=== PATIENT | female | born 1990 | race African-American/Black ===

== ENCOUNTER 2017-01-31 19:22 | Emergency (ER) | payer OTHER ==
[2017-01-31 19:27] VITALS: BP 120/68; PULSE 90; TEMP 98.1; BMI 28.6
[2017-01-31] MEDS ORDERED: ACETAMINOPHEN 325 MG TABLET (FP) PO ONE (20:05)
[2017-01-31] MEDS ORDERED: ALBUTEROL SO4 0.083% IH SOL 2.5 MG/3 ML VIAL.NEB. NEB ONE ×2 (20:06→20:10)
--- NOTE | 2017-01-31 20:09 | PDOC ---
History of Present Illness - General Chief Complaint: Respiratory Stated Complaint: 14 WKS PRG/CHEST PAIN Time Seen by Provider: 01/31/17 19:47 History Source: Patient Exam Limitations: No Limitations - History of Present Illness Initial Comments: 01/31/17 20:06 26 yr female states she is 14 weeks with cough and pain to her chest with coughing. Pt feels body aches. no shortness of breath. Pt has no medical history or allergies. Pt is followed by last visit . Pt states is unremarkable. Timing/Duration: reports: week Severity: reports: mild Episode Description: coughing Past History - Past Medical History Allergies/Adverse Reactions: Allergies Allergy/AdvReac Type Severity Reaction Status Date / Time peanut Allergy Verified 01/31/17 19:28 Penicillins Allergy Verified 01/31/17 19:27 shellfish derived Allergy Verified 01/31/17 19:28 Home Medications: Ambulatory Orders NK [No Known Home Medication] 01/31/17 Asthma: No Cancer: No Cardiac Disorders: No Diabetes: No HTN: No Seizures: No Thyroid Disease: No - Family Disease History Comment:: 01/31/17 20:08 none - Psycho/Social/Smoking Cessation Hx Anxiety: No Suicidal Ideation: No Smoking History: Never smoked Have you smoked in the past 12 months: No Hx Alcohol Use: No Drug/Substance Use Hx: No Substance Use Type: None Hx Substance Use Treatment: No Review of Systems - Review of Systems Able to Perform ROS?: Yes Is the patient limited Wolof proficient: No Constitutional: No: Symptoms Reported HEENTM: Yes: See HPI Respiratory: Yes: See HPI Cardiac (ROS): Yes: See HPI, Chest Pain (with cough and with touch to anterior chest, no left sided pain no SOB, cough noted ) *Physical Exam - Vital Signs Last Vital Signs Temp Pulse Resp BP Pulse Ox 98.1 F 90 18 120/68 99 01/31/17 19:24 01/31/17 19:24 01/31/17 19:24 01/31/17 19:24 01/31/17 19:24 - Physical Exam General Appearance: Yes: Nourished, Appropriately Dressed HEENT: positive: EOMI, MARILUZ, TMs Normal, Pharynx Normal Neck: positive: Supple. negative: Tender Respiratory/Chest: positive: Chest Tender (ttp reproducable with cough anterior upper chest to neck area , no left sided pain), Lungs Clear, Normal Breath Sounds Cardiovascular: positive: Regular Rhythm, Regular Rate Gastrointestinal/Abdominal: positive: Normal Bowel Sounds, Soft Musculoskeletal: positive: Normal Inspection Extremity: positive: Normal Capillary Refill, Normal Inspection, Normal Range of Motion Integumentary: positive: Normal Color, Dry, Warm Neurologic: positive: Fully Oriented, Alert, Normal Mood/Affect, Normal Response , Motor Strength /5 Medical Decision Making - Medical Decision Making 01/31/17 20:09 cc: cough body aches one week no shortness of breath no fever or chills denies abd pain or discharge 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 01/31/17 21:07 *DC/Admit/Observation/Transfer Diagnosis at time of Disposition: Viral bronchitis - Discharge Dispostion Disposition: HOME Condition at time of disposition: Good - Referrals Referrals: Dane San MD [Primary Care Provider] - - Patient Instructions Additional Instructions: drink at least 2 -3 liters of water a day eat small frequent meals around every 2-3hrs to keep blood sugar levels regular take tylenol 650mg every 4-6hrs for any fever or pain honey and tea with lemon for cough follow with your primary care doctor Thursday for follow up Return to the ER for any worsening symptoms
[2017-01-31] MEDS ORDERED: ACETAMINOPHEN 325 MG TABLET (FP) ONE (20:10)
[2017-01-31 20:14] LABS: URINE APPEARANCE CLEAR; URINE BILIRUBIN NEGATIVE (NEGATIVE); URINE BLOOD NEGATIVE (NEGATIVE); URINE COLOR LTYELLOW; URINE GLUCOSE (UA) 1+ (NEGATIVE); URINE KETONE NEGATIVE (NEGATIVE); URINE LEUK ESTERASE NEGATIVE (NEGATIVE); URINE NITRITE NEGATIVE (NEGATIVE); URINE PROTEIN NEGATIVE (NEGATIVE); URINE UROBILINOGEN NEGATIVE E.U./dl (0.2-1.0)
== END 2017-01-31 21:50 | disposition home or self-care (01) ==
LOC: JERFT 19:22
PROC: 3E0F7GC Introduction of Other Therapeutic Substance into Respiratory Tract, Via Natural or Artificial Opening (ICD-10-PCS; principal; 2017-01-31)
DX: O26.891 Other specified pregnancy related conditions, first trimester (principal); J20.8 Acute bronchitis due to other specified organisms; B97.89 Other viral agents as the cause of diseases classified elsewhere; Z3A.14 14 weeks gestation of pregnancy
CPT/HCPCS: 81003; 87086; 87804; 94640; 99281-25

== ENCOUNTER 2017-05-27 14:38 | Emergency (ER) | payer OTHER ==
[2017-05-27 14:45] VITALS: BP 108/61; PULSE 99; TEMP 98.3; BMI 28.8
== END 2017-05-27 16:41 | disposition home or self-care (01) ==
LOC: JER 14:38
DX: O26.893 Other specified pregnancy related conditions, third trimester (principal); O36.8130 Decreased fetal movements, third trimester, not applicable or unspecified; Z3A.31 31 weeks gestation of pregnancy; Y04.8XXA Assault by other bodily force, initial encounter; Y93.89 Activity, other specified; Y92.89 Other specified places as the place of occurrence of the external cause; Y07.499 Other family member, perpetrator of maltreatment and neglect
CPT/HCPCS: 99281-25

== ENCOUNTER 2017-07-16 19:45 | Inpatient (IN) | payer OTHER ==
[2017-07-16] MEDS ORDERED: CLINDAMYCIN 900 MG PREMIX IVPB 50 ML IVPB ONE (20:07)
[2017-07-16] MEDS ORDERED: BUTORPHANOL TARTRATE 1 MG/ML VIAL IVPUSH PRN (20:09)
[2017-07-16] MEDS ORDERED: PROMETHAZINE HCL 25 MG/1 ML VIAL IVPUSH ONE (20:09)
[2017-07-16] MEDS ORDERED: DEXTROSE 5%-LACTATED RINGERS 1,000 ML IV SCH (20:15)
--- NOTE | 2017-07-16 20:20 | HP ---
Past Medical History - Primary Care Physician PCP:: Kole Gordon - Admission Chief Complaint: 39 weeks, labor History of Present Illness: 27 yo f g 5 [id number] edc by sono 07/28/17 edc by date 07/22/17 c/o contraction, no rom, no bleeding, cx 5 cm 80 vx -1 mi, fhr cat 1 irregular contraction History Source: Patient Limitations to Obtaining History: No Limitations - Past Medical History ...: 5 ...Para: 3 ...Term: 3 ...: 0 ...Spon : 1 ...Multiple Gestation: 0 ... Weeks Gestation by Dates: 39 ...EDC by Dates: 07/22/17 ...EDC by Sono: 07/28/17 Infectious Disease: Yes: STD's (txed for BV, yeast and trich), Other - Past Surgical History Hx Myomectomy: No Hx Transabdominal Cerclage: No - Smoking History Smoking history: Never smoked Have you smoked in the past 12 months: No - Alcohol/Substance Use Hx Alcohol Use: No - Social History Usual Living Arrangement: Yes: Alone History of Recent Travel: No Home Medications - Allergies Allergies/Adverse Reactions: Allergies Allergy/AdvReac Type Severity Reaction Status Date / Time peanut Allergy Verified 05/27/17 14:45 Penicillins Allergy Verified 05/27/17 14:45 shellfish derived Allergy Verified 05/27/17 14:45 - Home Medications Home Medications: Ambulatory Orders Ferrous Sulfate [Feosol] 325 mg PO BID 05/21/17 Vit/Iron Fumarate/FA [ Tablet] 1 tablet PO DAILY 05/21/17 Review of Systems - Review of Systems Constitutional: reports: No Symptoms Eyes: reports: No Symptoms HENT: reports: No Symptoms Neck: reports: No Symptoms Cardiovascular: reports: No Symptoms Respiratory: reports: No Symptoms Gastrointestinal: reports: No Symptoms Genitourinary: reports: No Symptoms Breasts: reports: No Symptoms Reported Musculoskeletal: reports: No Symptoms Integumentary: reports: No Symptoms Endocrine: reports: No Symptoms Hematology/Lymphatic: reports: No Symptoms Psychiatric: reports: No Symptoms Physical Exam - Maternity Constitutional: Yes: Well Nourished, No Distress, Calm Eyes: Yes: WNL, Conjunctiva Clear, EOM Intact HENT: Yes: WNL, Atraumatic, Normocephalic Neck: Yes: WNL, Supple, Trachea Midline Cardiovascular: Yes: WNL, Regular Rate and Rhythm Breast(s): Yes: WNL - Abdominal Exam/OB Fundal Height: 40 Number of Fetuses: Single Presentation: Vertex Contractions: Yes Regularity: Irregular Intensity: Moderate Monitor Mode: External Heart Rate Location: [facility] Category: I Accelerations: Uniform Decelerations: None - Vaginal Exam/OB Vaginal Bleediing: No Speculum Exam: Yes Dilatation (cm): 5 Effacement (%): 80 Amniotic Membrane Status: Intact Presentation: Vertex/Position Station: -1 - Physical Exam Musculoskeletal: Yes: WNL Extremities: Yes: WNL Edema: RLE: 1+ Deep Tendon Reflex Grade: Normal +2 Hemorrhage Risk Assessment - Risk Factors Medium Risk Factors: Yes: None High Risk Factors: Yes: None Risk Score: 1 Risk Level: Medium Risk Problem List - Problems (1) with 39 completed weeks gestation Code(s): Z3A.39 - 39 WEEKS GESTATION OF (2) Labor established Code(s): OLL8152 - Assessment/Plan plan admit for vaginal delivery, FHM, pain management
[2017-07-16 21:24] LABS: BASOPHIL 0.3 % (0-2.0); EOSINOPHIL 1.3 % (0-4.5); MCH 29.5 pg (25.7-33.7); MCHC 33.7 g/dl (32.0-36.0); MEAN CELL VOLUME 87.5 fl (80-96); MEAN PLT VOLUME 8.7 fl (7.5-11.1); NEUTROPHILS 63.3 % (42.8-82.8); PLATELET COUNT 229 K/MM3 (134-434); RDW 14.3 % (11.6-15.6); WHITE BLOOD COUNT 9.1 K/mm3 (4.0-10.0)
[2017-07-16 21:36] VITALS: BMI 29.0
[2017-07-16 21:41] LABS: INR 0.99 (0.82-1.09); PROTHROMBIN TIME (PATIENT) 10.9 SEC (9.98-11.88)
[2017-07-16 21:44] LABS: ACTIVATED PTT 27.5 SECONDS (26.9-34.4)
[2017-07-16 21:54] LABS: ANION GAP 8 (8-16); CALCIUM 8.1 mg/dL (8.5-10.1); CO2 23 mmol/L (21-32); CREATININE 0.4 mg/dL (0.55-1.02); GLUCOSE,RANDOM 57 mg/dL (74-106)
--- NOTE | 2017-07-16 22:20 | PN ---
Progress Note (short form) - Note Progress Note: cx 7 cm 100 vx o mi arom, clear fhr cat 1 Problem List - Problems (1) with 39 completed weeks gestation Code(s): Z3A.39 - 39 WEEKS GESTATION OF (2) Labor established Code(s): [id number] -
[2017-07-17] MEDS ORDERED: BENZOCAINE 28 GM HEMORRHOIDAL OINTMENT TP PRN (00:26)
[2017-07-17] MEDS ORDERED: IBUPROFEN 600 MG TABLET (FP) PO PRN (00:26)
[2017-07-17] MEDS ORDERED: WITCH HAZEL 50% (TUCKS) 40 PAD/JAR PAD TP PRN (00:26)
[2017-07-17] MEDS ORDERED: oxyCODONE HCL 5 MG TABLET PO PRN (00:26)
[2017-07-17] MEDS ORDERED: BISACODYL 10 MG SUPP.RECT RC PRN (00:26)
[2017-07-17] MEDS ORDERED: BENZOCAINE 20% 57 GM BOTTLE TP PRN (00:26)
[2017-07-17] MEDS ORDERED: D5W-LR W/ 20 UNITS OXYTOCIN 1,000 ML IV SCH (00:30)
[2017-07-17] MEDS: METHYLERGONOVINE MALEATE 0.2 MG/1 ML AMP IM PRN ×2 (03:00→03:55)
[2017-07-17] MEDS ORDERED: CLINDAMYCIN 600MG PREMIX IVPB 50 ML IVPB SCH (03:00)
[2017-07-17 07:13] LABS: BASOPHIL 0.2 % (0-2.0); EOSINOPHIL 0.1 % (0-4.5); MCH 28.4 pg (25.7-33.7); MCHC 32.6 g/dl (32.0-36.0); MEAN CELL VOLUME 87.1 fl (80-96); MEAN PLT VOLUME 8.9 fl (7.5-11.1); NEUTROPHILS 84.4 % (42.8-82.8); PLATELET COUNT 224 K/MM3 (134-434); RDW 14.4 % (11.6-15.6); WHITE BLOOD COUNT 18.5 K/mm3 (4.0-10.0)
--- NOTE | 2017-07-17 08:38 | PN ---
Progress Note (short form) - Note Progress Note: ppd o had vaginal bleeding post uterine atony, recived methergine, several clots evacuated this am, has no bleeding now, has cramps , no dizziness abdomen soft, no cva , uterus firm lochia mild perineum clean no calf tenderness plan ambulate iron vit, repeat cbc in am. pain management Problem List - Problems (1) with 39 completed weeks gestation Code(s): Z3A.39 - 39 WEEKS GESTATION OF (2) Labor established Code(s): [id number] -
[2017-07-17] MEDS: PRENATAL VITAMINS W/ FOLIC ACID TABLET (FP) PO SCH ×2 (09:18→09:28)
[2017-07-17] MEDS: FERROUS SO4 325 MG TABLET (FP) PO SCH ×2 (09:18→17:24)
[2017-07-17] MEDS: ACETAMINOPHEN 325 MG TABLET (FP) PO PRN ×2 (09:24→16:11)
[2017-07-17] MEDS ORDERED: FERROUS SO4 325 MG TABLET (FP) PO SCH (10:00)
[2017-07-17] MEDS ORDERED: FLU VACC QS2017-18 36MOS UP/PF 60 MCG/0.5 ML SYRINGE IM ONE (10:00)
[2017-07-17] MEDS ORDERED: FLU VACCINE QUAD 60 MCG/0.5 ML (MDV 17-18) IM ONE (10:00)
[2017-07-17] MEDS ORDERED: DIPHTH,PERTUSS(ACELL),TET 0.5 ML DISP.SYRIN IM ONE (10:00)
[2017-07-17] MEDS: IBUPROFEN 100 MG/5 ML UNIT DOSE CUPS PO PRN (16:10)
[2017-07-18 07:40] LABS: BASOPHIL 0.6 % (0-2.0); EOSINOPHIL 2.6 % (0-4.5); MCH 29.1 pg (25.7-33.7); MCHC 33.6 g/dl (32.0-36.0); MEAN CELL VOLUME 86.7 fl (80-96); MEAN PLT VOLUME 8.3 fl (7.5-11.1); NEUTROPHILS 54.1 % (42.8-82.8); PLATELET COUNT 193 K/MM3 (134-434); RDW 14.7 % (11.6-15.6); WHITE BLOOD COUNT 10.3 K/mm3 (4.0-10.0)
[2017-07-18] MEDS: PRENATAL VITAMINS W/ FOLIC ACID TABLET (FP) PO SCH ×2 (09:04→10:31)
[2017-07-18] MEDS: FERROUS SO4 325 MG TABLET (FP) PO SCH ×2 (09:04→17:36)
--- NOTE | 2017-07-18 10:57 | PN ---
Progress Note (short form) - Note Progress Note: ppd 1 no excess vaginal bleeding , no dizziness , ambulating well CBC, BMP 07/18/17 07:00 07/16/17 21:15 Last Vital Signs Temp Pulse Resp BP Pulse Ox 98.5 F 69 20 125/82 99 07/18/17 08:37 07/18/17 08:37 07/18/17 08:37 07/18/17 08:37 07/17/17 01:20 uterus firm , non tender lochia mild ,no calf tenderness plan ambulate , cont iron, vit Problem List - Problems (1) with 39 completed weeks gestation Code(s): Z3A.39 - 39 WEEKS GESTATION OF (2) Labor established Code(s): [id number] -
[2017-07-18] MEDS ORDERED: SENNOSIDES/DOCUSATE COMBO (SENNA PLUS) TABLET (UD) PO PRN (22:00)
[2017-07-18] MEDS: IBUPROFEN 100 MG/5 ML UNIT DOSE CUPS PO PRN (23:14)
[2017-07-19] MEDS: PRENATAL VITAMINS W/ FOLIC ACID TABLET (FP) PO SCH ×2 (09:22→09:23)
[2017-07-19] MEDS: FERROUS SO4 325 MG TABLET (FP) PO SCH (09:22)
[2017-07-19 10:11] VITALS: BP 105/57; PULSE 90; TEMP 99.1
--- NOTE | 2017-07-19 14:26 | DS ---
Physical Exam-FACILITY ATTENDANT Vital Signs: Vital Signs Temperature 99.1 F 07/19/17 10:00 Pulse Rate 90 07/19/17 10:00 Respiratory Rate 20 07/19/17 10:00 Blood Pressure 105/57 07/19/17 10:00 O2 Sat by Pulse Oximetry (%) 99 07/17/17 01:20 Constitutional: Yes: Well Nourished, No Distress, Calm Eyes: Yes: WNL, Conjunctiva Clear, EOM Intact HENT: Yes: WNL, Atraumatic, Normocephalic Neck: Yes: WNL, Supple, Trachea Midline Cardiovascular: Yes: WNL, Regular Rate and Rhythm Respiratory: Yes: WNL, Regular, CTA Bilaterally Gastrointestinal: Yes: WNL ...Rectal Exam: Yes: WNL Renal/: Yes: WNL Vaginal Exam: Yes: Normal ....Post : Yes: Uterus firm, Uterus non-tender, Slight lochia rubra Breast(s): Yes: WNL Musculoskeletal: Yes: WNL Extremities: Yes: WNL Edema: No Integumentary: Yes: WNL Neurological: Yes: WNL, Alert, Oriented ...Motor Strength: WNL Psychiatric: Yes: WNL, Alert, Oriented Labs: CBC, BMP 07/18/17 07:00 07/16/17 21:15 Delivery - Delivery Vaginal Delivery: Spontaneous (no complication) Type of Anesthesia: None Episiotomy/Laceration: None EBL (cc): 300 Delivery, Single - Stages of Labor Date 1st Stage Initiatied: 07/16/17 Time 1st Stage Initiated: 16:00 Date 2nd Stage Initiated: 07/17/17 Time 2nd Stage Initiated: 00:00 Date of Delivery: 07/17/17 Time of Delivery: 00:15 Time Placenta Delivered: 00:18 Placenta: Yes: Spontaneous - Condition of Diesel Engine Engineer/Nuclear Operations Specialist Present: No Infant Gender: Female Weight: 5 lb 12 oz Position: Left, OA Total Hours ROM (Hrs/Mins): [id number] - 1 Minute Total Score: 9 5 Minutes Total Score: 9 - Feeding Plan Initial Plan: Elected not to breastfeed exclusively throughout hospitalization Discharge Summary Reason For Visit: LABOR Current Active Problems Labor established (Acute) with 39 completed weeks gestation (Acute) Procedures: Principal: Hospital Course: anemia Condition: Good - Instructions Diet, Activity, Other Instructions: return to clinic in 4-6 weeks. call [facility] for appointment. [phone] Referrals: Kole Gordon MD [Staff Physician] - Disposition: TRANSFER ACUTE CARE/OTHER HOSP - Home Medications Comprehensive Discharge Medication List: Ambulatory Orders Ferrous Sulfate [Feosol] 325 mg PO BID 05/21/17 Vit/Iron Fumarate/FA [ Tablet] 1 tablet PO DAILY 05/21/17 Ferrous Sulfate [Feosol] 325 mg PO BID #90 tablet 07/19/17
== END 2017-07-19 15:40 | disposition home or self-care (01) | DRG 560 ==
LOC: JLDR 19:45 → J3W 07-17 02:16
PROVIDERS: ADMIT Obstetrics & Gynecology; ATTEND Obstetrics & Gynecology
PROC: 10E0XZZ Delivery of Products of Conception, External Approach (ICD-10-PCS; principal; 2017-07-16)
DX: O72.1 Other immediate postpartum hemorrhage (principal); Z37.0 Single live birth
CPT/HCPCS: 36415; 59409; 80048; 85025; 85610; 85730; 86593; 86850; 86900; 86901; 90686; 90715; G0008